=== PATIENT | female | born 1985 | race Two or more races ===

== ENCOUNTER 2025-02-04 16:45 | Emergency (ER) | payer OTHER ==
[~2025-02-04] VITALS: Ht 160 cm; Wt 90.9 kg
[2025-02-04 16:52] VITALS: TEMP 98.3
[2025-02-04 20:54] LABS: PLATELET COUNT (AUTO) 330 K/uL (150-450); RED BLOOD CELL COUNT(AUTO) 4.66 MIL/uL (4.00-5.20); RED CELL DISTRIBUTION WIDTH 15.7 % (11.5-14.5); WHITE BLOOD COUNT (AUTO) 13.9 K/uL (4.5-11.0)
[2025-02-04 21:04] LABS: CALCIUM, TOTAL 8.8 mg/dL (8.8-10.5); CREATININE 0.74 mg/dL (0.60-1.30); GLOMERULAR FILTR. RATE CALC > 60 mL/min (>60); GLUCOSE,RANDOM 102 mg/dL (70-110); SODIUM SERUM 137 mmol/L (136-145); UREA NITROGEN, BLOOD 8 mg/dL (7-18)
[2025-02-04 21:13] LABS: TROPONIN I-HIGH SENSITIVITY 4 ng/L (<51)
[2025-02-04 21:50] VITALS: BP 144/77; PULSE 72; RESP 18; O2SAT 100
== END 2025-02-04 22:00 | disposition home or self-care (01) ==
LOC: EMS 16:49
DX: R20.0 Anesthesia of skin (principal); F41.9 Anxiety disorder, unspecified; I10 Essential (primary) hypertension; F17.210 Nicotine dependence, cigarettes, uncomplicated; Z98.890 Other specified postprocedural states; Z90.710 Acquired absence of both cervix and uterus
CPT/HCPCS: 80048; 84484; 84703; 85025; 93005; 99284